=== PATIENT | male | born 1960 | race Caucasian/White ===

== ENCOUNTER 2016-06-25 06:55 | Day surgery (SDC) ==
[2014-01-08 10:22] VITALS: BMI 25.7
[2016-06-25] MEDS ORDERED: LIDOCAINE 1% 20 ML MDV ONE (07:30)
[2016-06-25] MEDS ORDERED: LIDOCAINE 1% 20 ML MDV ID ONE (07:30)
[2016-06-25] MEDS ORDERED: DIPRIVAN 20 ML VIAL IVP ONE (08:45)
[2016-06-25] MEDS ORDERED: VERSED ONE (08:45)
[2016-06-25 09:50] VITALS: BP 138/79; TEMP 98.7
--- NOTE | 2016-06-25 14:52 | OP ---
INDICATIONS FOR PROCEDURE: 55-year-old gentleman presents for colonoscopy. He has a family history of colon cancer involving his mother. He has had some bright red blood per rectum off and on lately. MEDICATIONS: SEE ANESTHESIA NOTES. PROCEDURE: COLONOSCOPY, SNARE POLYPECTOMY. REPORT: The risks, benefits, alternatives and limitations were discussed in detail with the patient. Informed consent was obtained. After adequate sedation was achieved, a digital rectal exam revealed good tone, no masses. The colonoscope was introduced into the rectum and advanced under direct visual guidance to the cecum. The cecum was identified by the appendiceal orifice and IC valve. I then slowly withdrew the scope in a circumferential manner examining the mucosa quite carefully. I looked on the proximal and distal side of folds and flexures as best as possible. The colonic mucosa revealed a few small mouth diverticula scattered throughout the sigmoid. On retroflex view of the anal canal there was 1+ internal hemorrhoids. In the rectum there was a diminutive 4 or 5 mm polyp that was sessile. I removed this by sessile technique. No other abnormalities were noted. The prep was excellent. The withdrawal time was 9 minutes and 36 seconds. The patient tolerated the procedure well with stable vital signs and pulse oximetry throughout. IMPRESSION: 1. DIMINUTIVE RECTAL POLYP REMOVED 2. SIGMOID DIVERTICULOSIS 3. 1+ INTERNAL HEMORRHOIDS WHICH WOULD ACCOUNT FOR THE BRIGHT RED BLOOD PER RECTUM RECOMMENDATIONS: 1. High fiber diet 2. Office visit as needed 3. Await polyp pathology; if benign as expected, I recommend repeat examination again in 5 years, sooner if there are signs or symptoms to indicate otherwise. 4. For his hemorrhoid, besides a high fiber diet, I advised [id number] Preparation H suppository or similar medications to use as directed on a p.r.n. basis. CC: DR. TEVIN GUILLERMO
== END 2016-06-25 09:58 | disposition home or self-care (01) ==
LOC: SURG 06:55
PROVIDERS: ATTEND Internal Medicine Gastroenterology
DX: K62.5 Hemorrhage of anus and rectum (principal); D12.7 Benign neoplasm of rectosigmoid junction; K64.0 First degree hemorrhoids; Z80.0 Family history of malignant neoplasm of digestive organs

== ENCOUNTER 2017-09-19 15:37 | Outpatient (CLI) ==
[2014-01-08 10:22] VITALS: BMI 25.7
--- NOTE | 2017-09-19 16:07 | CT ---
EXAM: CT of the maxillofacial region without contrast History: Sinusitis. Left cheek and jaw pain Technique: Multiplanar CT images through the maxillofacial region were obtained without the administ ration of IV contrast. Findings: No acute fracture or dislocation. Orbits are intact. The visualized intracranial content s demonstrate no acute findings. Surrounding soft tissues demonstrate no acute findings. Mild to mo derate mucosal thickening of the ethmoid air cells. Mild mucosal thickening of the bilateral maxilla ry sinuses and frontal sinuses as well as the sphenoid sinuses. No prevertebral soft tissue swelling . Epiglottis is not thickened. Small chronic appearing right mastoid effusion within the inferior ri ght mastoid air cells. Nasal septum is bowed to the left. Bilateral ostiomeatal units are not occlud ed. Impression: 1. Mild to moderate paranasal sinusitis. 2. No acute osseous abnormality. 3. No acute abnormality within the surrounding soft tissues. 4. Small chronic appearing right mastoid effusion
== END 2017-09-19 15:38 | disposition home or self-care (01) ==
LOC: RAD 15:37
PROVIDERS: ATTEND Family Medicine
DX: J32.9 Chronic sinusitis, unspecified (principal)